=== PATIENT | male | born 1995 | race Caucasian/White ===

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

== ENCOUNTER 2018-03-04 10:29 | Emergency (ER) | payer BC, OTHER ==
[~2018-03-04] VITALS: Ht 180.3 cm; Wt 97.5 kg
[~2018-03-04 10:29] MED LIST changes: +ALBU0.0912 IH; -VENTOLIN H0.09 MG/Ac IH
[2018-03-04 10:33] VITALS: BP 122/84
--- NOTE | 2018-03-04 10:42 | NUR ---
PT AMBULATED TO ER BED 7.
--- NOTE | 2018-03-04 11:00 | NUR ---
PT. CAME INTO THE ED DUE TO R LEG SUTURE REMOVAL. PT. HAS HAD SUTURES IN FOR 10 DAYS, 3 SUTURES NOTED TO R LEG, COOL AND DRY TO TOUCH. NO REDNESS OR SWELLNG NOTED, NO PURULENT DRAINAGE. PT. DENIES ANY FEVERS, NO N/V/D. PT. IS AWAKE AND ABLE TO HAVE A CONVERSATION. RR EVEN AND UNLABORED. ER MD NOTIFIED. WILL CONTINUE TO MONITOR. 0/10 PAIN AT THIS TIME.
--- NOTE | 2018-03-04 11:20 | NUR ---
REMOVED SUTURES LOCATED ON OUTER RIGHT LEG. NO BLEEDING OR SWELLING. NO PAIN AT THIS TIME. USING CLEAN TECHNIQUE. WILL CONTINUE TO MONITOR.
[2018-03-04 12:43] VITALS: BP 120/80
--- NOTE | 2018-03-04 12:43 | NUR ---
Patient discharged with v/s stable. Written and verbal after care instructions given and explained. Patient verbalized understanding. Ambulatory with steady gait. All questions addressed prior to discharge. Advised to follow up with PMD.
== END 2018-03-04 12:43 | disposition home or self-care (01) ==
LOC: MED 10:29
DX: S81.811D Laceration without foreign body, right lower leg, subsequent encounter (principal); X58.XXXD Exposure to other specified factors, subsequent encounter; J45.909 Unspecified asthma, uncomplicated; Z91.030 Bee allergy status
CPT/HCPCS: 99283